=== PATIENT | male | born 1980 | race Caucasian/White ===

== ENCOUNTER 2021-11-30 23:17 | Inpatient (IN) | payer BC ==
[2021-12-01] MEDS ORDERED: HYDROmorphone 0.5 MG/0.5 ML Syringe IVPUSH ONE (01:14)
[2021-12-01] MEDS ORDERED: Ondansetron 4 MG/2 ML SDV IVPUSH ONE ×2 (01:14→03:24)
[2021-12-01] MEDS: Sodium Chloride 0.9% 1,000 ML IV SCH ×2 (01:33→06:49)
[2021-12-01] MEDS ORDERED: Piperacillin/Tazobactam 4.5 GM in Sodium Chloride 0.9% 100 ML IV ONE (02:56)
[2021-12-01] MEDS ORDERED: Piperacillin/Tazobactam 4.5 GM AdvVial ONE (02:57)
[2021-12-01] MEDS ORDERED: HYDROmorphone 1 MG/ML Syringe IVPUSH ONE (03:21)
[2021-12-01] MEDS ORDERED: HYDROmorphone 1 MG/ML Syringe IVPUSH PRN (05:13)
[2021-12-01] MEDS ORDERED: cefOXitin 2 GM in Premix Bag 1 BAG IV ONE (08:00)
[2021-12-01] MEDS ORDERED: Propofol 200 MG/20 ML SDV ONE (08:06)
[2021-12-01] MEDS ORDERED: Ondansetron 4 MG/2 ML SDV ONE (08:06)
[2021-12-01] MEDS ORDERED: Midazolam 1 MG/ML 2 ML SDV ONE (08:06)
[2021-12-01] MEDS ORDERED: Rocuronium 50 MG/5 ML Vial ONE (08:06)
[2021-12-01] MEDS ORDERED: Lidocaine 1% 4 ML ONE (08:06)
[2021-12-01] MEDS ORDERED: fentaNYL 250 MCG/5 ML SDV ONE (08:06)
[2021-12-01] MEDS ORDERED: Bupivacaine 0.5%/EPINEPHrine 1:200,000 50 ML MDV ONE (08:24)
[2021-12-01] MEDS ORDERED: fentaNYL 100 MCG/2 ML SDV IVPUSH PRN (09:04)
[2021-12-01] MEDS ORDERED: Ondansetron 4 MG/2 ML SDV IVPUSH PRN (09:04)
[2021-12-01] MEDS ORDERED: HYDROmorphone 0.5 MG/0.5 ML Syringe IVPUSH PRN (09:04)
[2021-12-01] MEDS ORDERED: Lactated Ringers 1,000 ML ONE ×2 (09:12→09:29)
[2021-12-01] MEDS ORDERED: HYDROmorphone 0.5 MG/0.5 ML Syringe ONE (09:16)
[2021-12-01] MEDS ORDERED: Ketorolac 30 MG/ML SDV ONE (09:36)
[2021-12-01] MEDS ORDERED: fentaNYL 100 MCG/2 ML SDV ONE (09:58)
[2021-12-01] MEDS: Heparin Sodium 5,000 Units/ML Vial SUBCUT SCH ×2 (12:05→20:01)
[2021-12-01] MEDS: Lactated Ringers 1,000 ML IV SCH (12:09)
[2021-12-01] MEDS: Piperacillin/Tazobactam 4.5 GM in Sodium Chloride 0.9% 100 ML IV SCH ×2 (16:30→23:27)
[2021-12-01] MEDS: oxyCODONE 5 MG Tab PO PRN ×2 (17:28→23:26)
[2021-12-02] MEDS: Heparin Sodium 5,000 Units/ML Vial SUBCUT SCH ×3 (03:07→17:59)
[2021-12-02] MEDS: Lactated Ringers 1,000 ML IV SCH (06:01)
[2021-12-02] MEDS: Piperacillin/Tazobactam 4.5 GM in Sodium Chloride 0.9% 100 ML IV SCH ×3 (08:29→23:35)
[2021-12-02] MEDS: Polyethylene Glycol 3350 Powder 17 GM Packet PO SCH (08:29)
[2021-12-02] MEDS: oxyCODONE 5 MG Tab PO PRN ×4 (08:30→23:34)
[2021-12-02] MEDS: Ondansetron 4 MG/2 ML SDV IVPUSH PRN (11:40)
[2021-12-02] MEDS ORDERED: Promethazine 12.5 MG in Sodium Chloride 0.9% 50 ML IV ONE (13:45)
[2021-12-02] MEDS: Morphine 2 MG/ML SYRINGE IVPUSH PRN (14:21)
[2021-12-02] MEDS: Dextrose 5%-0.45% NaCl 1,000 ML IV SCH (16:11)
[2021-12-03] MEDS: Heparin Sodium 5,000 Units/ML Vial SUBCUT SCH ×3 (03:49→18:11)
[2021-12-03] MEDS: oxyCODONE 5 MG Tab PO PRN ×4 (03:49→19:22)
[2021-12-03] MEDS: Dextrose 5%-0.45% NaCl 1,000 ML IV SCH ×2 (05:02→19:22)
[2021-12-03] MEDS: Piperacillin/Tazobactam 4.5 GM in Sodium Chloride 0.9% 100 ML IV SCH ×3 (08:15→23:55)
[2021-12-03] MEDS: Polyethylene Glycol 3350 Powder 17 GM Packet PO SCH (08:16)
[2021-12-03] MEDS: Morphine 2 MG/ML SYRINGE IVPUSH PRN ×2 (11:42→20:53)
[2021-12-03] MEDS: Ondansetron 4 MG/2 ML SDV IVPUSH PRN (14:02)
[2021-12-03] MEDS ORDERED: Promethazine 12.5 MG in Sodium Chloride 0.9% 50 ML IV ONE (19:35)
[2021-12-04] MEDS: Heparin Sodium 5,000 Units/ML Vial SUBCUT SCH ×3 (02:55→18:08)
[2021-12-04] MEDS ORDERED: Promethazine 12.5 MG in Sodium Chloride 0.9% 50 ML IV PRN (07:47)
[2021-12-04] MEDS: Dextrose 5%-0.45% NaCl 1,000 ML IV SCH (07:58)
[2021-12-04] MEDS: Piperacillin/Tazobactam 4.5 GM in Sodium Chloride 0.9% 100 ML IV SCH ×3 (08:31→23:55)
[2021-12-04] MEDS: Polyethylene Glycol 3350 Powder 17 GM Packet PO SCH (08:31)
[2021-12-04] MEDS: oxyCODONE 5 MG Tab PO PRN ×3 (09:14→18:08)
[2021-12-05] MEDS: Heparin Sodium 5,000 Units/ML Vial SUBCUT SCH ×2 (04:06→10:59)
[2021-12-05] MEDS: oxyCODONE 5 MG Tab PO PRN (04:11)
[2021-12-05] MEDS: Piperacillin/Tazobactam 4.5 GM in Sodium Chloride 0.9% 100 ML IV SCH (08:24)
== END 2021-12-05 12:50 | disposition home or self-care (01) | DRG 231 ==
LOC: JD.ED 23:17 → JD.MS 12-01 03:26 → OBSVTOIN 12-01 20:08
PROVIDERS: ADMIT Surgery; ATTEND Surgery
PROC: 0DTJ4ZZ Resection of Appendix, Percutaneous Endoscopic Approach (ICD-10-PCS; principal; 2021-12-01)
PROC: 0DBH4ZZ Excision of Cecum, Percutaneous Endoscopic Approach (ICD-10-PCS; 2021-12-01)
DX: K35.33 Acute appendicitis with perforation, localized peritonitis, and gangrene, with abscess (principal); Z87.891 Personal history of nicotine dependence; Z68.41 Body mass index [BMI] 40.0-44.9, adult; K56.7 Ileus, unspecified; E66.9 Obesity, unspecified
CPT/HCPCS: 00840; 36415; 71260; 71260-26; 72100; 72100-26; 74177; 74177-26; 80048; 80053; 81001; 85007; 85025; 85027; 96365; 96375; 96376; 99140; 99284; 99285-25; A9270-GY; J0694; J1170; J1644; J1885; J2250; J2270; J2405; J2543; J2550; J2704; J2710; J3010; J3490; J7030; J7042; J7120

== ENCOUNTER 2021-12-08 06:02 | Emergency (ER) | payer BC ==
[2021-12-08] MEDS ORDERED: Ondansetron 4 MG/2 ML SDV IVPUSH ONE (06:56)
[2021-12-08] MEDS ORDERED: Sodium Chloride 0.9% 1,000 ML IV ONE (06:56)
== END 2021-12-08 11:12 | disposition home or self-care (01) ==
LOC: JD.ED 06:02
DX: K52.9 Noninfective gastroenteritis and colitis, unspecified (principal); T78.1XXA Other adverse food reactions, not elsewhere classified, initial encounter; E66.9 Obesity, unspecified; Z68.41 Body mass index [BMI] 40.0-44.9, adult; Z28.310 Unvaccinated for COVID-19; Z87.891 Personal history of nicotine dependence
CPT/HCPCS: 36415; 74018; 80053; 83630; 83690; 83735; 85025; 86140; 87045; 87046; 87493; 87899; 96374; 99284; J2405; J7030

== ENCOUNTER 2021-12-17 14:46 | Emergency (ER) | payer BC ==
[2021-12-17] MEDS ORDERED: Sodium Chloride 0.9% 10 ML Syringe FLUSH PRN (15:13)
[2021-12-17] MEDS ORDERED: Sodium Chloride 0.9% 10 ML Syringe FLUSH ONE (15:16)
[2021-12-17] MEDS ORDERED: Iopamidol 612 MG/ML 100 ML Bottle IVPUSH ONE (15:16)
[2021-12-17] MEDS ORDERED: Iopamidol 612 MG/ML 50 ML SDV IVPUSH ONE (15:16)
[2021-12-17] MEDS ORDERED: Sodium Chloride 0.9% 100 ML IV SCH (15:30)
== END 2021-12-17 16:50 | disposition home or self-care (01) ==
LOC: JD.ED 16:33
DX: R19.7 Diarrhea, unspecified (principal); E66.9 Obesity, unspecified; Z68.39 Body mass index [BMI] 39.0-39.9, adult; Z90.49 Acquired absence of other specified parts of digestive tract; Z79.899 Other long term (current) drug therapy; Z87.891 Personal history of nicotine dependence
CPT/HCPCS: 36415; 74177; 80053; 83690; 86140; 99284; J3490; Q9967